=== PATIENT | male | born 1985 | race African-American/Black ===

== ENCOUNTER → 2017-06-17 | Outpatient (CLI) | payer OTHER ==
[~2017-06-17] MED LIST: HCTZ25 PO; LISI-368 PO; LISI20TA29 PO; METH4TAB66 PO; NO MEDS; OMEP40CA48 PO
[2017-06-17 08:21] LABS: PLATELET COUNT, AUTOMATED 241 K/uL (150-450)
== END ==
LOC: LAB 07:44
PROVIDERS: ATTEND Internal Medicine
DX: I12.9 Hypertensive chronic kidney disease with stage 1 through stage 4 chronic kidney disease, or unspecified chronic kidney disease (principal); N18.3 Chronic kidney disease, stage 3 (moderate)
CPT/HCPCS: 82040; 82088; 82247; 82310; 82374; 82435; 82465; 82565; 82610; 82947; 83718; 84075; 84132; 84155; 84295; 84450; 84460; 84478; 84520; 85025

== ENCOUNTER → 2017-06-23 | Outpatient (CLI) | payer OTHER | LOC: LAB 07:49 | PROVIDERS: ATTEND Internal Medicine | DX: I12.9 Hypertensive chronic kidney disease with stage 1 through stage 4 chronic kidney disease, or unspecified chronic kidney disease (principal); N18.3 Chronic kidney disease, stage 3 (moderate) | CPT/HCPCS: 82384; 82570; 84156 ==

== ENCOUNTER → 2018-02-24 | Outpatient (CLI) | payer OTHER | LOC: LAB 12:38 | PROVIDERS: ATTEND Internal Medicine Nephrology | DX: N18.2 Chronic kidney disease, stage 2 (mild) (principal); R80.1 Persistent proteinuria, unspecified; I10 Essential (primary) hypertension | CPT/HCPCS: 36415; 82040; 82310; 82374; 82435; 82565; 82570; 82947; 83970; 84100; 84132; 84156; 84295; 84520 ==